=== PATIENT | male | born 1975 ===

== ENCOUNTER 2018-03-08 09:22 | Day surgery (SDC) | payer MEDICAID ==
[2018-02-24 09:28] VITALS: BMI 28.4
[2018-03-08] MEDS: Lidocaine/Epinephrine 1% 1:100000 10 ML IJ ONE ×2 (12:12→12:51)
[2018-03-08] MEDS: Bupivacaine HCl 0.25% PF (30 ml) Inj ONE ×3 (12:12→15:00)
[2018-03-08] MEDS: ceFAZolin 1 gm in NS 2 GM/200 ML BAG IVPB ONE ×2 (12:13→12:35)
[2018-03-08] MEDS ORDERED: Midazolam 2 MG/2 ML VIAL ONE (12:15)
[2018-03-08] MEDS ORDERED: Propofol 10 mg/ml Inj (20 ML) ONE (12:16)
[2018-03-08] MEDS ORDERED: Rocuronium 10 mg/ml (5 ml) ONE (12:17)
[2018-03-08] MEDS ORDERED: Neostigmine Methylsulfate 3mg/3ml Syringe IV ONE (14:39)
[2018-03-08] MEDS ORDERED: Oxycodone/Acetaminophen 5/325 mg Tab PO PRN (15:05)
--- NOTE | 2018-03-08 15:09 | PCM.SURG1 ---
Surgeon's Initial Post Op Note - Surgeon's Notes Surgeon: Dr. Mccoy Membership Secretary: Merchant [email or web address], Lauren MURRAY Type of Anesthesia: General Endo Pre-Operative Diagnosis: Umbilical hernia Operative Findings: pre-peritoneal fat within defect. for details see op note Post-Operative Diagnosis: as above Operation Performed: Robotic umbilical hernia repair with mesh (sublay technique ) Specimen/Specimens Removed: Pre-peritoneal fat, hernia contents Estimated Blood Loss: EBL {In ML}: 5 Drains Used: No Drains Post-Op Condition: Good Date of Surgery/Procedure: 03/08/18 Time of Surgery/Procedure: 15:09
[2018-03-08 15:33] VITALS: RESP 18
[2018-03-08] MEDS: HYDROmorphone 0.5 mg/0.5 ml ISec IVP PRN ×3 (15:41→16:48)
[2018-03-08 18:37] VITALS: BP 122/85; PULSE 83; TEMP 97.1; O2SAT 96
--- NOTE | 2018-03-09 04:24 | OP ---
PROCEDURE DATE: 03/08/2018 PREOPERATIVE DIAGNOSIS: Umbilical hernia. POSTOPERATIVE DIAGNOSIS: Umbilical hernia containing preperitoneal fat. PROCEDURE DONE: 1. Robotic umbilical hernia repair with mesh. 2. Laparoscopic bilateral TAP block placement. SURGEON: Paul Mccoy MD ASSISTANTS: LEANNA Matute; and Abelino, PGY-1 resident. ANESTHESIA: General endotracheal tube anesthesia. ESTIMATED BLOOD LOSS: Around 10 mL. DRAINS: None. PATHOLOGY: Hernial sac and content was sent to pathology. COMPLICATIONS: None. INTRAOPERATIVE FINDINGS: Umbilical hernia and it was containing preperitoneal fat. DESCRIPTION OF PROCEDURE: On intraoperative steps, this is a 42-year-old male who was diagnosed with umbilical hernia and the patient was consented for robotic umbilical hernia repair with mesh and brought to the OR, placed supine on the operating table. After induction of the general anesthesia, the abdomen was prepped and draped in the usual sterile fashion. The left upper quadrant incision was made. The peritoneal cavity was entered, pneumo was created. Another 3.8 mm robotic camera port was placed. Robot was brought in. Camera arm as well as arm 1 and arm 2 was docked, and first the peritoneum was incised in the surrounding area of the umbilical hernia, and hernial sac and content was reduced back into the peritoneal cavity and now the fascial defect was closed with #1 Prolene V-Loc suture and 9 cm mesh was implanted and mesh was sutured to the anterior abdominal wall and peritoneum was sutured with 3-0 Vicryl continuous suture and mesh was placed as a sublay mesh, and after that, the specimen was taken out to the umbilical port site and bilateral laparoscopic TAP block was given; 30:30 mL of Marcaine was given in the right and left side, and after that, pneumo was deflated. All the port was taken out under vision, and all the port site was closed in a two layer, subcu in a 2-0 Vicryl, skin with 4-0 Monocryl, and dry sterile dressing was applied. The patient was extubated in the OR and sent to the Postanesthesia Care Unit in stable condition. Paul Mccoy MD
== END 2018-03-08 18:55 | disposition home or self-care (01) ==
LOC: C.SDS 09:22
PROVIDERS: ATTEND Surgery Surgical Critical Care
DX: K42.9 Umbilical hernia without obstruction or gangrene (principal)
CPT/HCPCS: 49652; 88302; C1781; J0690; J1100; J1170; J2001; J2250; J2405; J2704; J2710; J3010